=== PATIENT | female | born 1975 | race Caucasian/White ===

== ENCOUNTER 2017-09-24 15:09 | Emergency (ER) | payer OTHER, SELFPAY ==
[2017-09-24 15:09] VITALS: BP 181/110; PULSE 100; RESP 18; TEMP 36.7; O2SAT 100; BMI 31.8
--- NOTE | 2017-09-24 15:28 | CT_ITS ---
STUDY: CT ABDOMEN AND PELVIS WITHOUT CONTRAST REASON FOR EXAM: Female, 42 years old. Right-sided pain RADIATION DOSAGE (If Supplied By Facility): CTDIvol = ( 7.64 ) mGy, DLP = ( 393.00 ) mGycm TECHNIQUE: Transaxial images were obtained from the dome of the diaphragm to the symphysis pubis without oral contrast, and without intravenous contrast. Sagittal and coronal images were reconstructed. Individualized dose optimization techniques were used for this CT. COMPARISON: None. FINDINGS: The visualized lung bases are clear. The visualized portions of the heart and pericardium are within normal limits. The patient is status post cholecystectomy. The liver demonstrates an unremarkable unenhanced appearance. The spleen is normal in size. The pancreas demonstrates an unremarkable unenhanced appearance. The adrenal glands are within normal limits. There is a 3 mm nonobstructing left renal stone. There are no additional urinary calculi. There is no hydronephrosis. Normal visualized stomach. There is no bowel obstruction or inflammation. The appendix is not visualized, but there are no findings to suggest acute appendicitis. The aorta is normal in caliber. There is no abdominal or pelvic free air, free fluid, fluid collection or lymphadenopathy. There is a 3 cm left adnexal cyst. There are no destructive osseous lesions. CT/Abdomen/Pelvis without Cont IMPRESSION: 3 mm nonobstructing left renal stone. No additional urinary calculi. No hydronephrosis. No bowel obstruction or inflammation. 3 cm left adnexal cyst. If indicated, further evaluation with ultrasound can be performed. Electronically Signed: Coy Langford, at 19:10 EST Tel , Service support ,
--- NOTE | 2017-09-24 16:03 | ED.DCSUM_ITS ---
- ER Visit Summary Date of Service: 09/24/17 Chief Complaint: Right flank pain History of Present Illness: The patient is a [address] Esquivel. She reports that she has right flank and right-sided abdominal pain began 2 weeks ago. Is gradually gotten worse. It is a constant pressure with sharp episodes. Is 8 out of 10 currently and at worst. Is worsened by movement or food periods relieved by remaining still. She has had nausea without vomiting. No diarrhea. Her last bowel movement was today. She has had no melena or hematochezia. No dysuria, frequency, or hematuria. Last menstrual period was last week. She denies any vaginal bleeding or discharge. She reports this is similar when she has had kidney stones in the past. Physical Examination: Vitals: Stable. Afebrile. General: Well-nourished and well-developed. Head: Normocephalic atraumatic. Neck: Supple, no lymphadenopathy. No JVD. Nontender. Cardiovascular: Regular rate and rhythm. No murmurs. Respiratory: No respiratory distress. Clear to auscultation bilaterally. Abdominal: Soft, moderate tenderness palpation over the epigastric, right upper quadrant, and right lower quadrants, nondistended, normal bowel sounds. No guarding, rebound, or peritoneal signs. Back: Moderate right CVA tenderness. Extremities: Nontender, no edema. Skin: Normal color, no rash. Neurologic: Alert and oriented ?3. Cranial nerves II through XII are intact. Normal strength and sensation. Psych: Normal affect. Test Results: CBC is normal. Chem-7 is normal. LFTs are normal. Lipase is normal. UA is negative. test is negative. CT flank shows a 3 cm left adnexal cyst and no disease on the right to explain her flank pain. Pelvic ultrasound shows a 3 cm left ovarian cyst with normal flow. She also has a 2.6 x 1.7 x 1.4 cm fibroid. Emergency Department Course and Treatment: Patient had an IV placed. She was given Toradol and Zofran IV. Treatment Plan: An [facility] report was obtained which show she has had no opiates in the past year. She will be discharged with naproxen and [place]. 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 Return to the emergency department for any worsening symptoms. Disposition: To home in improved and stable condition. Impression: 1. Left ovarian cyst. 2. Uterine fibroids. This note was generated with [employer] dictation software. It may contain incorrect words, spelling, and punctuation that were not noted in review of the chart prior to signing ED Disposition - Plan for ED Patient: Disposition: Home or Assisted Living Chief Complaint: Flank Pain Instructions: ED Flank Pain Uncertain Cause, ED Cyst Ovarian Prescriptions: Hydrocodone Bitart/Apap 5-325 [[place] 5/325] 1 - 2 tablet PO Q4H PRN PRN 3 Days # 12 tablet PRN Reason: Pain Naproxen [Naprosyn] 500 mg PO BID PRN #20 tablet Referrals: Dona Santos MD [STAFF PHYSICIAN] - 1 Week if not improving
[2017-09-24] MEDS: Ketorolac 30 MG/ML Syringe IV (16:06)
[2017-09-24] MEDS: 0.9% Normal Saline 1,000 ML 1000 ML IV (16:06)
[2017-09-24] MEDS: Ondansetron 4 MG/2 ML Vial IV (16:06)
[2017-09-24 16:10] LABS: Bacteria 0 SEEN /hpf (None Seen); Mucous, Urine 0 SEEN /hpf (<or=2+); Red Blood Cells-Urine 0 SEEN /hpf (0-5)
[2017-09-24 16:17] LABS: Absolute Lymphocyte Count 2.17 X10^3/ul (0.83-4.51); Absolute Neutrophil Count 3.7 X10^3/uL (2.0-7.7); Basophil# 0.04 X10^3/uL; Basophil% 0.6 % (0-1); Eosinophil# 0.19 X10^3/uL; Eosinophils% 2.8 % (0-5); Hematocrit 38.7 % (37-47); Lymphocyte # 2.17 X10^3/ul (4.0); Lymphocyte % 32.2 % (19-41); Mean Corp Hgb Conc 33.6 g/gl (32-36); Mean Corpuscular Hgb 29.7 pg (27.0-32.0); Mean Corpuscular Volume 88.4 fL (81-99); Mean Platelet Vol. 9.1 fl (6.2-12.0); Monocyte# 0.61 X10^3/uL; Monocyte% 9.1 % (0-10); Neutrophil # 3.71 X10^3/uL (2.7-7.7); Neutrophil % 55.2 % (47-70); Platelet Count 294 K/mm3 (150-450); RBC Distribution Width CV 14.1 % (11.6-14.6); RBC Distribution Width SD 45.7 fl (35.1-43.9); Red Blood Count 4.38 M/mm3 (4.2-5.4); White Blood Count 6.7 K/mm3 (4.4-11.0)
[2017-09-24 16:22] LABS: POSITIVE COUNT NO; POSITIVE DIFFERENTIAL NO; POSITIVE MORPHOLOGY NO
[2017-09-24 16:37] LABS: Color, Urine Yellow (Yellow); Glucose, Dipstick Normal (Normal); Ketone-Dipstick Negative (Negative); Leukocyte Esterase-Dipstick 500 /ul (Negative); Nitrite-Dipstick Negative (Negative); Occult Blood-Urine Negative /ul (Negative); Protein-Dipstick Negative (Negative); Specific Gravity, Urine 1.015 (1.002-1.030); Urine Bilirubin Dipstick Negative (Negative); Urine Clarity Cloudy (Clear); Urine Urobilinogen Normal (Normal)
[2017-09-24 16:39] LABS: AST(SGOT) 26 U/L (15-37); Alanine Aminotransfer ALT/SGPT 43 U/L (13-56); Albumin, Serum 3.5 g/dL (3.2-5.0); Alkaline Phosphatase 78 U/L (45-117); Anion Gap 9 (5-15); BUN 12 mg/dL (7-18); BUN/Creat Ratio 18.5 RATIO (10-20); Bilirubin, Direct < 0.05 mg/dL (0.00-0.30); Calcium,Total 8.6 mg/dL (8.5-10.1); Chloride 101 mmol/L (98-107); Creatinine, Serum 0.65 mg/dL (0.55-1.02); EST Glomerular Filtration Rate 107 mL/min (>60); Est Glom Filt Rate - Afr Amer 129 mL/min (>60); Estimated Creatinine Clearance 80.99 ml/min; Globulin 4.1 g/dL (2.2-4.2); Glucose 91 mg/dL (74-106); Lipase 144 U/L (73-393); Potassium 3.5 mmol/L (3.5-5.1); Pregnancy, Serum, hCG Quali. NEGATIVE Negative (0-9 Nonpreg); Protein, Total 7.6 g/dL (6.4-8.2); Sodium Level 136 mmol/L (136-145)
[2017-09-24 16:58] LABS: Squamous Epithelial Cells - UA 0-5 SEEN /hpf (5-10)
[2017-09-24 16:59] LABS: Amorphous Sediment 3+; White Blood Cells 0-5 SEEN /hpf (0-5)
[2017-09-24 18:33] VITALS: BP 142/86; PULSE 97; RESP 22; O2SAT 97
--- NOTE | 2017-09-24 19:07 | US_ITS ---
STUDY: ULTRASOUND TRANSVAGINAL CLINICAL: Female, 42 years old. Pelvic pain TECHNIQUE: Transvaginal COMPARISON: CT dated 09/24/2017 FINDINGS: Study limited by bowel gas. Normal uterine size measuring 7.7 x 5.1 x 3.5 cm. cm in maximal craniocaudal dimension. There is a 2.6 x 1.7 x 1.4 cm fibroid in the body of the uterus Normal endometrial thickness measuring 3 mm. There are no endometrial masses, and there is no fluid in the endometrial cavity. Normal uterine cervix. The patient is status post right oophorectomy. The left ovary is not well visualized due to bowel gas. The left ovary measures approximately 5.7 x 4.1 x 3.3 cm. Although not well-visualized, there does appear to be normal Doppler flow demonstrated to the left ovary. There is a 2.9 x 2.8 x 2.6 cm cyst in the left ovary. There is no free fluid in the pelvis. US/Transvaginal Non- IMPRESSION: Study limited by bowel gas. Specifically, the left ovary is not well-visualized. Enlarged left ovary with a 2.9 x 2.8 cm cyst. Although evaluation is limited, there does appear to be normal Doppler flow in the left ovary. 2.6 x 1.7 x 1.4 cm fibroid in the uterus. Status post right oophorectomy. Electronically Signed: Coy Langford, at 22:43 EST Tel , Service support ,
[2017-09-24] MEDS: HYDROcodone Bitartrate/Apap 5/325 Tablet PO (23:03)
[2017-09-24 23:07] VITALS: BP 152/93; PULSE 86; RESP 17; O2SAT 98
--- NOTE | 2017-09-24 23:07 | ED.RN ---
IV DC'ED, CATHETER INTACT, SMALL GAUZE DRESSING PLACED. DISCHARGE INSTRUCTIONS GIVEN TO AND REVIEWED WITH PATIENT, PATIENT DENIES QUESTIONS OR CONCERNS AND VOICES UNDERSTANDING OF DISCHARGE INSTRUCTIONS. PT AMBULATES OUT OF ROOM WITHOUT DIFFICULTY.
== END 2017-09-24 23:08 | disposition home or self-care (01) ==
LOC: ED 15:31
PROVIDERS: Emergency Provider Emergency Medicine; Family Provider Preventive Medicine Occupational Medicine; PCP Preventive Medicine Occupational Medicine
DX: N83.202 Unspecified ovarian cyst, left side (principal); D25.9 Leiomyoma of uterus, unspecified; Z87.442 Personal history of urinary calculi; F41.9 Anxiety disorder, unspecified; F32.9 Major depressive disorder, single episode, unspecified; M79.7 Fibromyalgia; Z87.42 Personal history of other diseases of the female genital tract; Z90.49 Acquired absence of other specified parts of digestive tract; Z90.721 Acquired absence of ovaries, unilateral
CPT/HCPCS: 74176; 76830; 80048; 80076; 81001; 83690; 84703; 85025; 93976; 96361; 96374; 96375; 99285; J7030; A4216; J2405

== ENCOUNTER 2017-12-01 10:34 | Inpatient (IN) | payer OTHER, SELFPAY ==
--- NOTE | 2017-11-26 15:41 | EKG12_ITS ---
Test Reason : PRE OP Blood Pressure : / mmHG Vent. Rate : 097 BPM Atrial Rate : 097 BPM P-R Int : 154 ms QRS Dur : 086 ms QT Int : 342 ms P-R-T Axes : 053 033 046 degrees QTc Int : 434 ms Normal sinus rhythm Normal ECG Confirmed by LUIS SAL, GURPREET ([id number]), online content editor CHASITY BENNETT ([id number]) on 11/30/2017 2:05:36 PM Referred By: Dona Santos Confirmed By:GURPREET SMITH MD
[2017-11-26 17:02] LABS: Hemoglobin 13.2 g/dl (12.0-15.0); Mean Corp Hgb Conc 33.8 g/gl (32-36); Mean Corpuscular Hgb 29.9 pg (27.0-32.0); Mean Corpuscular Volume 88.4 fL (81-99); Mean Platelet Vol. 9.4 fl (6.2-12.0); Platelet Count 372 K/mm3 (150-450); RBC Distribution Width CV 13.5 % (11.6-14.6); RBC Distribution Width SD 43.3 fl (35.1-43.9); Red Blood Count 4.41 M/mm3 (4.2-5.4); White Blood Count 10.7 K/mm3 (4.4-11.0)
[2017-11-26 17:10] LABS: Pregnancy, Serum, hCG Quali. NEGATIVE Negative (0-9 Nonpreg)
[2017-11-26 17:14] LABS: Scan Indicated on CBC? Y/N NO
[2017-12-01] VITALS (11 sets, daily range): BP systolic 143–176; BP diastolic 87–126; PULSE 88–110; RESP 14–22; TEMP 35.9–36.9; O2SAT 96–100; BMI 32.3
--- NOTE | 2017-12-01 | HYST_PTH ---
PATIENT: KATLIN GAYTAN LOC: MS2 U#:[id number] AGE/SX: 42/F [place] [facility] [place] [facility] [place]12/01/[address]: Dr. Dona Santos MD : [id number] BED: 1 DIS: 12/03/2017 SPEC #: [id number] RECD: 12/01/17 17:31 STATUS: ERICKA FARNAZ #: [id number] GUILLERMINA: 12/01/17 00:[address]: Dona Santos DEPT: SURGICAL PATHOLOGY RECD BY: Anurag Rm ENTERED: 12/02/17 11:50 SP TYPE: HYSTERECT OTHR DR: Dr. Skyler Hatch, DO Tissues: Uterus, NOS Procedures: Surgery Specimen Level V HEADER OPERATION: Hysterectomy, supracervical abdomen, salpingo-oophorectomy PRE-OP DIAGNOSIS: Lower abdominal pain, endometriosis of pelvic peritoneum TISSUE SUBMITTED: Uterus, left ovary and fallopian tube MICROSCOPIC DIAGNOSIS Uterus, hysterectomy: Endometrium ? proliferative endometrium. Myometrium ? adenomyosis. Left fallopian tube and ovary ? tubo-ovarian adhesions, corpus luteal cysts and foci of endometriosis. AM:leisa 12/03/17 COMMENT Case has been reviewed in consultation with Dr. Franco who concurs with the above diagnosis. IDC:SJ MICROSCOPIC DESCRIPTION Slides are reviewed. GROSS DESCRIPTION Received in fixative is one container labeled with the patient's name and designated uterus, left ovary and fallopian tube. The specimen consists of a supracervical hysterectomy specimen consisting of uterus without cervix and detached fallopian tube and ovary. The uterus without cervix weighs 50 gm and measures 5 x 5 x 4 cm. The anterior serosal surface is slightly ragged. The endometrial cavity measures 3.5 cm in length and 2 cm in width. The endometrium is congested without any mass lesion and measures 0.1 cm in thickness. Sections of the uterine wall do not reveal any mass lesion and it measures up to 2 cm in thickness. The fallopian tube measures 4.5 cm in length and 1 cm in diameter. The fimbrial end appears to be adherent to the ovary. The adjacent ovary appears to be disrupted and measures 4 x 1.5 x 1 cm. Ict Development Manager sections are submitted in eight cassettes as follows: 1 & 2 - anterior uterine wall, 3 & 4 - posterior uterine wall, 5-8 ? ovary and fallopian tube. / LEIGHTON:leisa 12/02/17 TC:5 CPT: 77710
[2017-12-01 10:57] LABS: Internal QC Validated? YES +Cl - CLEAR BKGD; Pregnancy, Urine Negative Negative
--- NOTE | 2017-12-01 16:06 | PCM.DC.AHY ---
Discharge Diet: No Restrictions Discharge Activity: May not drive while taking narcotic pain medications., May Shower, May Take a Tub Bath Return to work on:: 01/17/18 May resume sexual activity in: 4-6 weeks Lifting Restrictions: limit to less than 20 lbs for 4-6 wk to allow healing Call your doctor if you observe: Fever of 101 or Higher, Inability to have a bowel movement, Using more than one pad per hour, Calf discomfort, Uncontrolled pain Change Dressing in (Days):: 14 Remove Dressing in (days):: 14 Cleanse incision/area with: Soap & Water, Keep Dressing Clean & Dry Additional Instructions: 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 Avoid heavy lifting and nothing in vagina for 4-6 wk to allow healing. Allergies/Adverse Reactions: Allergies clindamycin Allergy (Verified 11/26/17 08:50) Rash hazelnut Allergy (Verified 11/26/17 08:50) Hives levofloxacin [From Levaquin] Allergy (Verified 11/26/17 08:50) Rash shellfish derived Allergy (Verified 11/26/17 08:50) Anaphylaxis Medications to take at Discharge Vitamin B Complex 1 each PO DAILY 06/28/15 Duloxetine Hcl [Cymbalta] 90 mg PO DAILY 11/26/17 Lorazepam [Ativan] 0.5 mg PO TID PRN PRN 11/26/17 Multivitamin [Multiple Vitamins] 1 each PO DAILY 11/26/17 Naproxen [Naprosyn] 500 mg PO BID PRN PRN 11/26/17 Docusate Sodium [Colace] 100 mg PO BID #60 cap 12/01/17 Oxycodone [Oxyir] 5 - 10 mg PO Q6H PRN PRN 7 Days #28 tablet 12/01/17 Polyethylene Glycol 3350 [Miralax] 17 gm PO DAILY #30 packet 12/01/17 The following prescriptions were given: Oxycodone [Oxyir] 5 - 10 mg PO Q6H PRN PRN 7 Days #28 tablet PRN Reason: Mod-Severe Pain (-05/25) Polyethylene Glycol 3350 [Miralax] 17 gm PO DAILY #30 packet Docusate Sodium [Colace] 100 mg PO BID #60 cap Primary Care Physician: Skyler Hatch DO [Primary Care Provider] - Please Follow Up With: Dona Santos MD - [phone] When: in 2 weeks, please call to make an appointment.
--- NOTE | 2017-12-01 16:12 | DCINST_ITS ---
Discharge Diet: No Restrictions Discharge Activity: May not drive while taking narcotic pain medications., May Shower, May Take a Tub Bath Return to work on:: 01/17/18 May resume sexual activity in: 4-6 weeks Lifting Restrictions: limit to less than 20 lbs for 4-6 wk to allow healing Call your doctor if you observe: Fever of 101 or Higher, Inability to have a bowel movement, Using more than one pad per hour, Calf discomfort, Uncontrolled pain Change Dressing in (Days):: 14 Remove Dressing in (days):: 14 Cleanse incision/area with: Soap & Water, Keep Dressing Clean & Dry Additional Instructions: 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 Avoid heavy lifting and nothing in vagina for 4-6 wk to allow healing. Allergies/Adverse Reactions: Allergies clindamycin Allergy (Verified 11/26/17 08:50) Rash hazelnut Allergy (Verified 11/26/17 08:50) Hives levofloxacin [From Levaquin] Allergy (Verified 11/26/17 08:50) Rash shellfish derived Allergy (Verified 11/26/17 08:50) Anaphylaxis Medications to take at Discharge Vitamin B Complex 1 each PO DAILY 06/28/15 Duloxetine Hcl [Cymbalta] 90 mg PO DAILY 11/26/17 Lorazepam [Ativan] 0.5 mg PO TID PRN PRN 11/26/17 Multivitamin [Multiple Vitamins] 1 each PO DAILY 11/26/17 Naproxen [Naprosyn] 500 mg PO BID PRN PRN 11/26/17 Docusate Sodium [Colace] 100 mg PO BID #60 cap 12/01/17 Oxycodone [Oxyir] 5 - 10 mg PO Q6H PRN PRN 7 Days #28 tablet 12/01/17 Polyethylene Glycol 3350 [Miralax] 17 gm PO DAILY #30 packet 12/01/17 The following prescriptions were given: Oxycodone [Oxyir] 5 - 10 mg PO Q6H PRN PRN 7 Days #28 tablet PRN Reason: Mod-Severe Pain (-05/25) Polyethylene Glycol 3350 [Miralax] 17 gm PO DAILY #30 packet Docusate Sodium [Colace] 100 mg PO BID #60 cap Primary Care Physician: Skyler Hatch DO [Primary Care Provider] - Please Follow Up With: Dona Santos MD - [phone] When: in 2 weeks, please call to make an appointment.
[2017-12-01] MEDS: HYDROmorphone 1 MG/ML Syringe IV (17:21)
[2017-12-01] MEDS: LORazepam 0.5 MG Tablet PO (17:21)
[2017-12-01] MEDS: Dextrose 5%-Lactated Ringers 1,000 ML 125 ML IV (17:24)
--- NOTE | 2017-12-01 18:11 | PN_ITS ---
Subjective: Postop check Drowsy C/O pain. Conversant, but drifts off between sentences Incision CDI. Urine output: copious , clear yellow A/P: postop supracervical abdominal hysterectomy ,lysis of adhesions and LSO severe endometriosis Toradol and prn Dilaudid. If ineffective, then to dilaudid COUNTER WAITRESS/WAITER HTN Likely due to pain Toradol to be given. K pad in place prn hydralazine IV ordered Continue care - Physical Exam Vital Signs Temp Pulse Resp BP Pulse Ox 97.8 F 96 18 176/108 H 99 12/01/17 17:05 12/01/17 17:05 12/01/17 17:05 12/01/17 17:05 12/01/17 17:05 Oxygen Flow Rate (L/min) 2 Oxygen Delivery Method Nasal Cannula Weight: 75 kg Body Mass Index (BMI) 32.3 Intake and Output for Last 24 Hours 11/29/17 11/30/17 12/01/17 23:59 23:59 23:59 Intake Total 2100 / 2100 Output Total 575 / 575 Balance 1525 / 1525 Laboratory Tests Past 24 Hrs 12/01/17 10:47 Urine Test Negative Medical Necessity - Tobacco Use Smoking Status: Current some day smoker
[2017-12-01] MEDS: Ketorolac 30 MG/ML Syringe IV (18:27)
[2017-12-01] MEDS: DiphenhydrAMINE 50 MG/ML Syringe 25 MG IV (18:28)
[2017-12-01] MEDS: 0.9% NaCl Peripheral Flush Adult/Peds IV ×2 (18:28→19:37)
[2017-12-01] MEDS: hydrALAZINE 20 MG/ML Vial 5 MG IV (19:37)
[2017-12-01] MEDS: Acetaminophen 500 MG Tablet 1000 MG PO (21:11)
[2017-12-01] MEDS: Docusate Sodium 100 MG Capsule PO (21:12)
[2017-12-02] VITALS (10 sets, daily range): BP systolic 102–172; BP diastolic 67–105; PULSE 85–104; RESP 16–18; TEMP 36.3–37; O2SAT 94–98
[2017-12-02] MEDS: 0.9% NaCl Peripheral Flush Adult/Peds IV ×5 (00:01→23:45)
[2017-12-02] MEDS: LORazepam 0.5 MG Tablet PO (00:13)
[2017-12-02] MEDS: Dextrose 5%-Lactated Ringers 1,000 ML 125 ML IV (00:56)
[2017-12-02] MEDS: oxyCODONE 5 MG Tablet PO (03:58)
[2017-12-02] MEDS: Ketorolac 30 MG/ML Syringe IV ×5 (05:53→23:45)
[2017-12-02] MEDS: Acetaminophen 500 MG Tablet 1000 MG PO ×3 (05:53→21:22)
[2017-12-02 05:59] LABS: Hematocrit 34.7 % (37-47); Hemoglobin 11.7 g/dl (12.0-15.0); Mean Corp Hgb Conc 33.7 g/gl (32-36); Mean Corpuscular Hgb 29.6 pg (27.0-32.0); Mean Corpuscular Volume 87.8 fL (81-99); Platelet Count 341 K/mm3 (150-450); RBC Distribution Width CV 13.5 % (11.6-14.6); RBC Distribution Width SD 43.5 fl (35.1-43.9); Red Blood Count 3.95 M/mm3 (4.2-5.4); White Blood Count 16.5 K/mm3 (4.4-11.0)
[2017-12-02 06:13] LABS: Scan Indicated on CBC? Y/N NO
[2017-12-02 06:29] LABS: Anion Gap 9 (5-15); BUN 9 mg/dL (7-18); BUN/Creat Ratio 12.2 RATIO (10-20); Calcium,Total 7.7 mg/dL (8.5-10.1); Chloride 104 mmol/L (98-107); Creatinine, Serum 0.74 mg/dL (0.55-1.02); EST Glomerular Filtration Rate 92 mL/min (>60); Est Glom Filt Rate - Afr Amer 111 mL/min (>60); Estimated Creatinine Clearance 71.14 ml/min; Glucose 160 mg/dL (74-106); Potassium 3.6 mmol/L (3.5-5.1); Sodium Level 138 mmol/L (136-145)
--- NOTE | 2017-12-02 06:43 | OP.PCM_ITS ---
Operative Report Date of Procedure: 12/01/17 PROCEDURE: Supracervical abdominal hysterectomy Left salpingoophorectomy Adhesiolysis Preoperative diagnosis: Chronic pelvic and lower abdominal pain Endometriosis Dense pelvic adhesions Postop diagnosis: Chronic pelvic and lower abdominal pain Endometriosis Dense pelvic adhesions Anesthesia: General anesthesia, Suellen Alvarez CRNA Surgeon: Dona Santos MD Meat Smoker: ASTER Saleh EBL 200 cc Complications: none Drains: Hanna draining clear yellow appearing urine Fluids: replacement LR Findings: There was a normal appearing uterus with dense adhesions of the posterior surface of the uterus to the posterior pelvis. The anterior uterus was adherent to the bladder. The right fallopian and tube and ovary are surgically absent. The left fallopian tube and ovary was densely adherent to the posterior leaf of the broad ligament, uterus. A large fluid filled cyst vs hydrosalpinx was noted. There were dense adhesions at the uterosacral ligaments noted bilaterally (noted after the uterus was dissected free from dense adhesions at the posterior surface of the uterus). PATH: Uterine fundus, without cervix Right fallopian tube and ovary Narrative account: After the risks, benefits and alternatives of the procedure were reviewed with the patient, informed consent was obtained. The patient was taken to the Operating room with an IV running, and placed in dorsal supine position on the operating table. She was given general anesthesia and once asleep, briefly frog-legged for Hanna catheter placement and vaginal vault prep. She was then repositioned to dorsal supine position with a pillow under the knees and prepped and draped in the usual sterile fashion. A Pfannenstiel skin incision was created using the knife (just superior to the prior skin incision scars). The incision was carried down to the rectus fascia using the knife. The fascia was nicked in the midline. The fascial incision was extended bilaterally using curved Cruz scissors. The superior aspect of the fascial incision was grasped with Jayson clamps and tented up and the underlying rectus abdominal muscles were dissected free. In a similar manner, the inferior aspect of the facial incision was grasped with Jayson clamps tented up and the underlying rectus abdominal muscles were dissected free. The rectus abdominis muscles were in the midline and the peritoneum was identified and entered by blunt dissection high in the incision. The peritoneal incision was extended superiorly and inferiorly with Metzenbaum scissors. The peritoneum and rectus abdominis muscles were stretched laterally. The Granville retractor with short side blade, bladder retractor and superior arm retractor were then inserted. The bowel was tucked back out of the field with moistened laparotomy sponges. The exposed portion of the uterine fundus was grasped with a single toothed tenaculum to allow manipulation of the uterus while adhesiolysis was initiated. Using the operators fingertips and sharp dissection the posterior surface of the uterus was dissected free of dense adhesions. The round ligaments were grasped, suture ligated and then divided by Bovie cautery. The adhesions between the anterior surface of the uterus and the bladder were then taken down by blunt and sharp dissection and the bladder was dissected down to the midportion of the cervix. The L ovary and fallopian tube were grasped with a Shaila clamp and a cystic structure was ruptured. The operators fingertips, blunt and sharp dissection were used to free the fallopian tube and ovary. A curved Krystal clamp was then used to grasp the left infundibulopelvic ligament. This was divided, suture ligated and free tied with 1 Vicryl. Excellent hemostasis was noted of the pedicle. Sequential pedicles were then taken along the broad ligament at each side of the uterus, alternating between the right and the left sides to maintain hemostasis. Each pedicle along the broad ligament was sequentially grasped by straight Krystal clamps, divided and suture ligated. Adequate hemostasis was noted as each pedicle was secured. The uterine arteries were clamped bilaterally and divided and suture ligated. At this point, due to a dense floor of adhesions at the uterosacral ligaments bilaterally and to avoid undue bleeding, the decision was made to perform a SUPRACERVICAL hysterectomy. The uterine fundus was excised with a knife (with a malleable retractor placed posterior to the uterus to protect the bowel). The cervical stump was secured with a single toothed tenaculum. There was very minimal bleeding. The endocervix was Bovie cauterized to assure than no residual menses / bleeding would occur). The cervix was oversewn with figure of 8 and interrupted stitches of 1 Vicryl. Excellent hemostasis was noted at the cervix, left infundibulopelvic ligament and round ligaments. The moistened laparotomy sponges were removed, and there was some oozing noted at the posterior pelvis and along the left pelvic sidewall where dense adhesions was been taken down. As needed, superficial figure of 8 and interrupted stitches of 1 Vicryl were placed, pressure was held. Excellent hemostasis was noted then. Aung was sprayed along the posterior cul de sac after visual inspection. All laparotomy sponges were removed, and the Granville retractor was removed. The bowel and omentum were returned to their anatomic positions in the lower abdomen. The rectus abdominis muscles and peritoneum were reapproximated in the midline with vertical mattress stitches of 1 Vicryl. Aung was dusted over the anterior rectus bodies. The fascia was then closed with a running nonlocked stitch of 1 Vicryl. Bovie cautery and Aung were used for hemostasis at the subcutaneous fatty tissue layer. 3-0 Vicryl was then used to reapproximate this layer and close space. The skin was then reapproximated with a subcuticular stitch of 4-0 Monocryl in a running fashion. The skin incision was then cleansed and a sterile dressing of Cavilon, steristrips, and a Mepilex were applied. Sponge, instrument and needle counts were correct times two. The patient was then awakened from general anesthesia and transferred to the recovery room in stable condition after tolerating the procedure well. Excellent urine output was noted. Medications given preop and intraop included: Cefotetan 2 gm IV information security consultant to the OR. For a complete listing of medications given preop and intraop, please see the anesthesia record.
--- NOTE | 2017-12-02 08:39 | PCM.PROGNOTE ---
Subjective: POD#1 Supracervical abdominal hysterectomy, LSO. Lysis of adhesions. Sore. Asking if ok to have some Coke and regular food. Tolerated slushy and po liquids w/o N/V. Some cramping with end of void. Relates urine blood tinged and with small clots, but able to urinate ok after Hanna catheter removed. Objective: More alert, awake today. - Physical Exam General: Alert, Oriented x3, Cooperative - towards end of discussion, more drowsy HEENT: Atraumatic, EOMI Neck: Supple Abdomen: Soft - tender consistent with postop status Skin: Incision - Mepilex dressing CDI. No shadow drainage noted. Psych/Mental Status: Normal Affect Vital Signs Temp Pulse Resp BP Pulse Ox 97.3 F L 90 16 168/96 H 95 //18 04:05 12/02/18 04:05 12/02/17 04:05 12/02/17 06:07 12/02/17 08:31 Oxygen Flow Rate (L/min) 1.5 Oxygen Delivery Method Room Air Weight: 75 kg Body Mass Index (BMI) 32.3 Intake and Output for Last 24 Hours 04/17/18 18/18 18 23:59 23:59 23:59 Intake Total 2201 / 2201 1696 / 1696 Output Total 1075 / 1075 575 / 575 Balance 1126 / 1126 1121 / 1121 Laboratory Tests Past 24 Hrs 04/18/18 18 12/02/17 10:47 05:30 05:30 WBC 16.5 H RBC 3.95 L Hgb 11.7 L Hct 34.7 L MCV 87.8 MCH 29.6 MCHC 33.7 RDW 13.5 RDW Differential 43.5 Plt Count 341 MPV 9.0 Sodium 138 Potassium 3.6 Chloride 104 Carbon Dioxide 25.0 Anion Gap 9 BUN 9 Creatinine 0.74 Estim Creat Clear Calc 71.14 Est GFR (MDRD) Af Amer 111 Est GFR (MDRD) Non-Af 92 BUN/Creatinine Ratio 12.2 Glucose 160 H Calcium 7.7 L Urine Test Negative Medical Necessity - Tobacco Use Smoking Status: Current some day smoker Assessment/Plan POD#1 Supracervical hysterectomy for severe endometriosis, pelvic adhesions. LSO. Adhesiolysis #1 ) Postop status. Stable postop. CBC wnl as anticipated postop. BMP wnl. Increase diet and activity as tolerated. Begin po meds. Hanna out and voiding well with some end of urination cramping noted. #2 ) HTN and slight inc HR likely due to discomfort and postop status. Will begin low dose betablocker for these and plan to d/c as recovery from surgery progresses. Continue care.
[2017-12-02] MEDS: Polyethylene Glycol 3350 17 GM PACKET PO (09:13)
[2017-12-02] MEDS: DULoxetine Hcl 30 MG Capsule 90 MG PO (09:14)
[2017-12-02] MEDS: hydrALAZINE 20 MG/ML Vial 5 MG IV (09:15)
[2017-12-02] MEDS: Docusate Sodium 100 MG Capsule PO ×2 (09:15→21:22)
[2017-12-02] MEDS: Labetalol 100 MG Tablet PO ×2 (11:52→21:22)
[2017-12-03] MEDS: 0.9% NaCl Peripheral Flush Adult/Peds IV (05:41)
[2017-12-03] MEDS: Ketorolac 30 MG/ML Syringe IV (05:41)
[2017-12-03] MEDS: Acetaminophen 500 MG Tablet 1000 MG PO (05:41)
[2017-12-03 05:44] VITALS: BP 95/63; PULSE 86; RESP 16; TEMP 36.5; O2SAT 95
--- NOTE | 2017-12-03 08:26 | PCM.PROGNOTE ---
Subjective: POD#2 Supracervical abdominal hysterectomy and LSO, lysis of adhesions. Severe pelvic adhesive disease 2/2 endometriosis. Doing much better today. Up and down to bathroom and tolerating this OK. Some pain, soreness but controlled by pain meds. IV to S/L in R arm and continued Toradol given. - Physical Exam General: Alert, Oriented x3, Cooperative, No apparent distress HEENT: Atraumatic Neck: Supple Abdomen: Soft - minimally tender consistent with postop status. Skin: Incision - CDI. Steristrips intact, with minimal old dischg noted. Mepilex removed. Some mild tape rxn noted at L side of incision. Neurological: Cranial nerves II-XII grossly intact Psych/Mental Status: Normal Affect Vital Signs Temp Pulse Resp BP Pulse Ox 97.7 F L 86 16 95/63 95 12/03/17 05:44 12/03/17 05:44 12/03/17 05:44 12/03/17 05:44 12/03/17 05:44 Oxygen Flow Rate (L/min) 1.5 Oxygen Delivery Method Room Air Weight: 75 kg Body Mass Index (BMI) 32.3 Intake and Output for Last 24 Hours 04/18/18 /19/18 12/03/18 23:59 23:59 23:59 Intake Total 2201 / 2201 4119 / 4119 300 / 300 Output Total 1075 / 1075 3225 / 3225 200 / 200 Balance 1126 / 1126 894 / 894 100 / 100 Medical Necessity - Tobacco Use Smoking Status: Current some day smoker Assessment/Plan POD#2 Supracervical hysterectomy for severe endometriosis, pelvic adhesions. LSO. Adhesiolysis #1 ) Postop status. Stable postop. #2 ) HTN and slight inc HR likely due to discomfort and postop status. Resolving. Held Betablocker this am and will discontinue #3 ) Surgical postmenopause. Prefers NOT to start on hormone for now. Discussed option for Aygestin (progesterone only) to help with hot flushes and to further suppress any residual endometriosis. Will call in PRN for this RX if needed Continue care. Dischg home today. RTO in 2 wk for postop incision check., prn sooner.
--- NOTE | 2017-12-03 08:32 | PCM.DC.SUM ---
Discharge Date and Diagnosis Date of Admission: 12/01/17 - Chronic pelvic pain, Severe endometriosis, pelvic adhesive disease Date of Discharge: 12/03/17 - s/p supracervical abdominal hyst, LSO.lysis adhesions Hospital Course and Treatment Operations: hysterectomy - Supracervical abdominal hysterectomy, LSO. adhesiolysis. Summary of Care Provided: The patient is a 42 year old female with prior C/S and prior RSO. H/o severe endometriosis and pelvic adhesive disease 2/2 endometriosis. Chronic pelvic pain. Presents for hysterectomy and LSO. Elected [facility] and declined robotic hysterectomy. Admitted on 12/01/17 for surgery. Supracervical hysterectomy, LSO and adhesiolysis performed. Cervix left in place due to dense adhesions along the uterosacral ligaments and posterior pelvis. Postoperative course uneventful: CBC stable. Mild to mod HTN d/t to pain, fluid balance Discharged home on POD #2 to f/u in ofc in 2 wk as planned, prn sooner. Discharge Diet: No Restrictions Discharge Activity: May not drive while taking narcotic pain medications., May Shower, May Take a Tub Bath Return to work on:: 01/17/18 May resume sexual activity in: 4-6 weeks Call your doctor if you observe: Fever of 101 or Higher, Inability to have a bowel movement, Using more than one pad per hour, Calf discomfort, Uncontrolled pain Change Dressing in (Days):: 14 Remove Dressing in (days):: 14 Cleanse incision/area with: Soap & Water, Keep Dressing Clean & Dry Home Medications: Medications to take at Discharge Vitamin B Complex 1 each PO DAILY 06/28/15 Duloxetine Hcl [Cymbalta] 90 mg PO DAILY 11/26/17 Lorazepam [Ativan] 0.5 mg PO TID PRN PRN 11/26/17 Multivitamin [Multiple Vitamins] 1 each PO DAILY 11/26/17 Naproxen [Naprosyn] 500 mg PO BID PRN PRN 11/26/17 Docusate Sodium [Colace] 100 mg PO BID #60 cap 12/01/17 Oxycodone [Oxyir] 5 - 10 mg PO Q6H PRN PRN 7 Days #28 tablet 12/01/17 Polyethylene Glycol 3350 [Miralax] 17 gm PO DAILY #30 packet 12/01/17 Naproxen [Naprosyn] 250 - 500 mg PO TID PRN #30 tab 12/03/17 Following Prescrptions Were Given to Patient: Oxycodone [Oxyir] 5 - 10 mg PO Q6H PRN PRN 7 Days #28 tablet PRN Reason: Mod-Severe Pain (-05/25) Polyethylene Glycol 3350 [Miralax] 17 gm PO DAILY #30 packet Docusate Sodium [Colace] 100 mg PO BID #60 cap Naproxen [Naprosyn] 250 - 500 mg PO TID PRN #30 tab PRN Reason: Mild-Mod Pain (-12/23) Primary Care Physician: Skyler Hatch DO [Primary Care Provider] - Please Follow Up With: Dona Santos MD - [phone] When: in 2 weeks, please call to make an appointment. 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 Avoid heavy lifting and nothing in vagina for 4-6 wk to allow healing. Medical Necessity - Tobacco Use Smoking Status: Current some day smoker Meaningful Use Info Meaningful Use Diagnoses (Choose all that apply): None applicable
--- NOTE | 2017-12-03 08:36 | DS.PCM_ITS ---
Discharge Date and Diagnosis Date of Admission: 12/01/17 - Chronic pelvic pain, Severe endometriosis, pelvic adhesive disease Date of Discharge: 12/03/17 - s/p supracervical abdominal hyst, LSO.lysis adhesions Hospital Course and Treatment Operations: hysterectomy - Supracervical abdominal hysterectomy, LSO. adhesiolysis. Summary of Care Provided: The patient is a 42 year old female with prior C/S and prior RSO. H/o severe endometriosis and pelvic adhesive disease 2/2 endometriosis. Chronic pelvic pain. Presents for hysterectomy and LSO. Elected [facility] and declined robotic hysterectomy. Admitted on 12/01/17 for surgery. Supracervical hysterectomy, LSO and adhesiolysis performed. Cervix left in place due to dense adhesions along the uterosacral ligaments and posterior pelvis. Postoperative course uneventful: CBC stable. Mild to mod HTN d/t to pain, fluid balance Discharged home on POD #2 to f/u in ofc in 2 wk as planned, prn sooner. Discharge Diet: No Restrictions Discharge Activity: May not drive while taking narcotic pain medications., May Shower, May Take a Tub Bath Return to work on:: 01/17/18 May resume sexual activity in: 4-6 weeks Call your doctor if you observe: Fever of 101 or Higher, Inability to have a bowel movement, Using more than one pad per hour, Calf discomfort, Uncontrolled pain Change Dressing in (Days):: 14 Remove Dressing in (days):: 14 Cleanse incision/area with: Soap & Water, Keep Dressing Clean & Dry Home Medications: Medications to take at Discharge Vitamin B Complex 1 each PO DAILY 06/28/15 Duloxetine Hcl [Cymbalta] 90 mg PO DAILY 11/26/17 Lorazepam [Ativan] 0.5 mg PO TID PRN PRN 11/26/17 Multivitamin [Multiple Vitamins] 1 each PO DAILY 11/26/17 Naproxen [Naprosyn] 500 mg PO BID PRN PRN 11/26/17 Docusate Sodium [Colace] 100 mg PO BID #60 cap 12/01/17 Oxycodone [Oxyir] 5 - 10 mg PO Q6H PRN PRN 7 Days #28 tablet 12/01/17 Polyethylene Glycol 3350 [Miralax] 17 gm PO DAILY #30 packet 12/01/17 Naproxen [Naprosyn] 250 - 500 mg PO TID PRN #30 tab 12/03/17 Following Prescrptions Were Given to Patient: Oxycodone [Oxyir] 5 - 10 mg PO Q6H PRN PRN 7 Days #28 tablet PRN Reason: Mod-Severe Pain (-05/25) Polyethylene Glycol 3350 [Miralax] 17 gm PO DAILY #30 packet Docusate Sodium [Colace] 100 mg PO BID #60 cap Naproxen [Naprosyn] 250 - 500 mg PO TID PRN #30 tab PRN Reason: Mild-Mod Pain (-12/23) Primary Care Physician: Skyler Hatch DO [Primary Care Provider] - Please Follow Up With: Dona Santos MD - [phone] When: in 2 weeks, please call to make an appointment. 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 Avoid heavy lifting and nothing in vagina for 4-6 wk to allow healing. Medical Necessity - Tobacco Use Smoking Status: Current some day smoker Meaningful Use Info Meaningful Use Diagnoses (Choose all that apply): None applicable
[2017-12-03] MEDS: Docusate Sodium 100 MG Capsule PO (09:52)
[2017-12-03] MEDS: Polyethylene Glycol 3350 17 GM PACKET PO (09:52)
[2017-12-03] MEDS: DULoxetine Hcl 30 MG Capsule 90 MG PO (09:52)
[2017-12-03 10:00] VITALS: BP 108/72; PULSE 72; RESP 16; TEMP 36.6; O2SAT 96
== END 2017-12-03 11:16 | disposition home or self-care (01) | DRG 743 ==
LOC: ACINP 10:36 → MS2 12:36
PROVIDERS: Admitting Provider Obstetrics & Gynecology; Family Provider Preventive Medicine Occupational Medicine; PCP Preventive Medicine Occupational Medicine; Visit Provider Obstetrics & Gynecology
PROC: 0UT94ZZ Resection of Uterus, Percutaneous Endoscopic Approach (ICD-10-PCS; principal; 2017-12-01 12:10)
DX: N80.9 Endometriosis, unspecified (principal); N73.6 Female pelvic peritoneal adhesions (postinfective); I10 Essential (primary) hypertension; F17.200 Nicotine dependence, unspecified, uncomplicated; M79.7 Fibromyalgia; M46.86 Other specified inflammatory spondylopathies, lumbar region; F41.9 Anxiety disorder, unspecified; F32.9 Major depressive disorder, single episode, unspecified; Z79.899 Other long term (current) drug therapy
CPT/HCPCS: 36415; 80048; 81025; 84703; 85027; 86850; 86900; 88307; 93005; J7120; A4216; J2405

== ENCOUNTER → 2017-12-15 11:06 | Outpatient (CLI) | payer OTHER, SELFPAY ==
[2017-12-15 12:45] LABS: Anion Gap 7 (5-15); BUN 13 mg/dL (7-18); BUN/Creat Ratio 18.1 RATIO (10-20); Calcium,Total 9.4 mg/dL (8.5-10.1); Chloride 106 mmol/L (98-107); Creatinine, Serum 0.72 mg/dL (0.55-1.02); EST Glomerular Filtration Rate 94 mL/min (>60); Est Glom Filt Rate - Afr Amer 114 mL/min (>60); Glucose 96 mg/dL (74-106); Potassium 4.3 mmol/L (3.5-5.1); Sodium Level 141 mmol/L (136-145)
[2017-12-15 12:48] LABS: Hematocrit 37.5 % (37-47); Hemoglobin 12.5 g/dl (12.0-15.0); Mean Corp Hgb Conc 33.3 g/gl (32-36); Mean Corpuscular Hgb 29.9 pg (27.0-32.0); Mean Corpuscular Volume 89.7 fL (81-99); Mean Platelet Vol. 9.2 fl (6.2-12.0); Platelet Count 461 K/mm3 (150-450); RBC Distribution Width SD 44.9 fl (35.1-43.9); Red Blood Count 4.18 M/mm3 (4.2-5.4); White Blood Count 10.4 K/mm3 (4.4-11.0)
[2017-12-15 12:56] LABS: Scan Indicated on CBC? Y/N NO
== END ==
PROVIDERS: Visit Provider Obstetrics & Gynecology
DX: I10 Essential (primary) hypertension (principal)
CPT/HCPCS: 36415; 80048; 85027

== ENCOUNTER → 2019-10-05 07:13 | Outpatient (CLI) | payer MEDICAID, SELFPAY ==
[2019-09-28 13:30] VITALS: BMI 31.8
--- NOTE | 2019-10-05 07:18 | BI_ITS ---
MAMMOGRAPHY - BILATERAL SCREENING REASON FOR EXAM: Female, 44 years old. Routine annual screening examination. PERTINENT HISTORY: Aunt with breast cancer. TECHNIQUE: Digital bilateral breast charlette (3D mammographic acquisition) in the CC and MLO projections. 2-D mediolateral oblique (MLO) and craniocaudad (CC) views of both breasts were obtained. CAD: Full Field Digital Mammography with Computer Added Detection was performed. COMPARISON: Comparison is made with prior examination dated June 04, 2016. FINDINGS: Breast Composition: The breasts are heterogeneously dense, which may obscure small masses. There are no dominant masses or suspicious calcifications. No other significant abnormalities are identified. There has been no significant change since the prior study. BI/SCREEN MAMM (CAD) W/CHARLETTE BILAT IMPRESSION: Stable bilateral screening mammogram. Yearly follow-up mammogram recommended. (A) ASSESSMENT CATEGORY: BIRADS Category 1: Negative. A letter regarding these results will be sent to the patient by the facility within 30 days. Approximately 10% of breast cancers are not detected by mammography. A normal mammogram should not delay biopsy of a clinically suspicious abnormality. [id number] Electronically Signed: Fredrick Duran, at 8:22 EST , Service support ,
== END ==
PROVIDERS: Referring Provider Obstetrics & Gynecology; Visit Provider Obstetrics & Gynecology
DX: Z12.31 Encounter for screening mammogram for malignant neoplasm of breast (principal)
CPT/HCPCS: 77063; 77067

== ENCOUNTER → 2019-10-11 | Outpatient (CLI) | payer MEDICAID, SELFPAY ==
[2019-09-28 13:30] VITALS: BMI 31.8
[2019-10-16 20:07] LABS: Age Gdln ACOG Testing 30-65 (.)
[2019-10-16 20:30] LABS: HPV APTIMA, High Risk Positive (Negative)
[2019-10-16 20:31] LABS: HPV Reflexed? YES, CHARGE PATIENT
== END | disposition home or self-care (01) ==
LOC: LABSPEC 14:17
PROVIDERS: Visit Provider Obstetrics & Gynecology
DX: Z12.4 Encounter for screening for malignant neoplasm of cervix (principal)
CPT/HCPCS: 87624; 88175; G0145

== ENCOUNTER → 2019-11-02 | Outpatient (CLI) | payer MEDICAID, SELFPAY ==
[2019-09-28 13:30] VITALS: BMI 31.8
--- NOTE | 2019-11-02 14:30 | CER_PTH ---
PATIENT: KATLIN GAYTAN [facility] U[id number] AGE/SX: 44/F ROOM: RE11/02/[address]: Dr. Valeriy Jamil MD : 1975 BED: DIS: 11/02/2019 SPEC #: [id number] RECD: 11/02/19 17:09 STATUS: ERICKA FARNAZ #: [id number] GUILLERMINA: 11/02/19 14:[address]: Valeriy Jamil DEPT: SURGICAL PATHOLOGY RECD BY: Gaurang Hendricks ENTERED: 11/03/19 07:30 SP TYPE: CERV OTHR DR: Dr. Tamra Schumacher, Tissues: A - Uterine cervix, NOS B - Uterine cervix, NOS Procedures: Surgery Specimen Level IV HEADER OPERATION: Colposcopy PRE-OP DIAGNOSIS: R87.610 R87.810 TISSUE SUBMITTED: A - Four quadrant cervical biopsy, B - ECC MICROSCOPIC DIAGNOSIS A. Cervix, four-quadrant biopsy: Fragments of squamous mucosa, negative for dysplasia. B. ECC: Fragments of benign ecto- and endocervical epithelium with chronic inflammation and negative for dysplasia. LEIGHTON:leisa 11/06/19 COMMENT Clinical correlation and appropriate follow up are necessary. MICROSCOPIC DESCRIPTION Slides are reviewed. GROSS DESCRIPTION A - Received in fixative is one container labeled with the patient's name and designated four-quadrant cervical biopsy. The specimen consists of multiple irregular fragments of light flores soft tissue that in aggregate measure 0.7 x 0.7 x 0.2 cm. The specimen is totally submitted in one cassette. B - Received in fixative is one container labeled with the patient's name and designated ECC. The specimen consists of multiple irregular fragments of flores mucoid tissue that in aggregate measure 1 x 1 x 0.1 cm. The specimen is totally submitted in one cassette. / LEIGHTON:leisa 11/03/19 TC:3 CPT: 18686 x2
== END | disposition home or self-care (01) ==
PROVIDERS: Referring Provider Obstetrics & Gynecology; Visit Provider Obstetrics & Gynecology
DX: R87.610 Atypical squamous cells of undetermined significance on cytologic smear of cervix (ASC-US) (principal); R87.810 Cervical high risk human papillomavirus (HPV) DNA test positive
CPT/HCPCS: 88305

== ENCOUNTER → 2020-12-16 16:17 | Outpatient (CLI) | payer OTHER, MEDICAID, SELFPAY ==
[2019-09-28 13:30] VITALS: BMI 31.8
[2020-12-20 20:19] LABS: HPV APTIMA, High Risk Negative (Negative); HPV Reflexed? YES, CHARGE PATIENT
== END ==
PROVIDERS: Visit Provider Obstetrics & Gynecology
DX: Z12.4 Encounter for screening for malignant neoplasm of cervix (principal)
CPT/HCPCS: 87624; 88175; G0145

== ENCOUNTER → 2020-12-26 07:59 | Outpatient (CLI) | payer OTHER, MEDICAID, SELFPAY ==
[2019-09-28 13:30] VITALS: BMI 31.8
--- NOTE | 2020-12-26 08:03 | BI_ITS ---
MAMMOGRAPHY - BILATERAL SCREENING REASON FOR EXAM: Female, 45 years old. Routine annual screening examination. PERTINENT HISTORY: Aunt with breast cancer. TECHNIQUE: Digital bilateral breast charlette (3D mammographic acquisition) in the CC and MLO projections. 2-D mediolateral oblique (MLO) and craniocaudad (CC) views of both breasts were obtained. CAD: Full Field Digital Mammography with Computer Added Detection was performed. COMPARISON: Comparison is made with prior study dated 10/05/2019 and 06/04/2016. FINDINGS: Breast Composition: The breasts are heterogeneously dense, which may obscure small masses. There are no dominant masses or suspicious calcifications. Stable benign appearing bilateral axillary lymph nodes. No other significant abnormalities are identified. There has been no significant change since the prior study. BI/SCRN MAMM (CAD)W/CHARLETTE BILAT IMPRESSION: Stable bilateral screening mammogram. Yearly follow-up mammogram recommended. (A) ASSESSMENT CATEGORY: BIRADS Category 2: Benign. A letter regarding these results will be sent to the patient by the facility within 30 days. Approximately 10% of breast cancers are not detected by mammography. A normal mammogram should not delay biopsy of a clinically suspicious abnormality. [id number] Electronically Signed: Fredrick Duran MD at 8:59 EDT , Service support ,
== END ==
PROVIDERS: Referring Provider Obstetrics & Gynecology; Visit Provider Obstetrics & Gynecology
DX: Z12.31 Encounter for screening mammogram for malignant neoplasm of breast (principal)
CPT/HCPCS: 77063; 77067

== ENCOUNTER → 2022-09-18 | Outpatient (CLI) | payer MEDICAID, SELFPAY ==
[2022-09-24 17:47] LABS: HPV APTIMA, High Risk Negative (Negative)
== END | disposition home or self-care (01) ==
LOC: LABSPEC 10:42
PROVIDERS: Visit Provider Student in an Organized Health Care Education/Training Program
DX: Z12.4 Encounter for screening for malignant neoplasm of cervix (principal)
CPT/HCPCS: 87624; 88175; G0145

== ENCOUNTER → 2022-10-01 | Outpatient (CLI) | payer MEDICARE, MEDICAID, SELFPAY ==
--- NOTE | 2022-10-01 09:45 | BI_ITS ---
MAMMOGRAPHY - BILATERAL SCREENING REASON FOR EXAM: Female, 47 years old. Routine annual screening examination. PERTINENT HISTORY: Aunt with breast cancer. TECHNIQUE: Digital bilateral breast charlette (3D mammographic acquisition) in the CC and MLO projections. 2-D mediolateral oblique (MLO) and craniocaudad (CC) views of both breasts were obtained. CAD: Full Field Digital Mammography with Computer Added Detection was performed. COMPARISON: Comparison is made with prior study of 12/26/2020 and 10/05/2019. FINDINGS: Breast Composition: There are scattered areas of fibroglandular density. There are no dominant masses or suspicious calcifications. Stable small benign-appearing bilateral axillary lymph nodes. No other significant abnormalities are identified. There has been no significant change since the prior study. BI/SCRN MAMM (CAD)W/CHARLETTE BILAT IMPRESSION: Stable bilateral screening mammogram. Yearly follow-up mammogram recommended. (A) ASSESSMENT CATEGORY: BIRADS Category 2: Benign. A letter regarding these results will be sent to the patient by the facility within 30 days. Approximately 10% of breast cancers are not detected by mammography. A normal mammogram should not delay biopsy of a clinically suspicious abnormality. [id number] Electronically Signed: Fredrick Duran MD at 11:54 EST ,
== END | disposition home or self-care (01) ==
LOC: OPBI 09:43
PROVIDERS: Visit Provider Student in an Organized Health Care Education/Training Program
DX: Z12.31 Encounter for screening mammogram for malignant neoplasm of breast (principal)
CPT/HCPCS: 77063; 77067

== ENCOUNTER → 2023-04-29 | Outpatient (CLI) | payer MEDICARE, SELFPAY ==
[2023-04-29 09:10] LABS: ALB/GLOB Ratio 1.1 RATIO (0.9-2.4); AST(SGOT) 15 U/L (15-37); Alanine Aminotransfer ALT/SGPT 19 U/L (13-56); Albumin, Serum 3.6 g/dL (3.2-5.0); Alkaline Phosphatase 69 U/L (45-117); Anion Gap 5 (5-15); BUN 11 mg/dL (7-18); BUN/Creat Ratio 14.8 RATIO (10-20); Calcium,Total 9.1 mg/dL (8.5-10.1); Chloride 110 mmol/L (98-107); Creatinine, Serum 0.74 mg/dL (0.55-1.02); EST Glomerular Filtration Rate 89 mL/min (>60); Est Glom Filt Rate - Afr Amer 107 mL/min (>60); Globulin 3.4 g/dL (2.2-4.2); Glucose 86 mg/dL (74-106); Lipase 39 U/L (13-75); Potassium 3.7 mmol/L (3.5-5.1); Sodium Level 142 mmol/L (136-145); T4 Total, Thyroxin 9.1 ug/dL (4.8-13.9)
[2023-04-29 19:50] LABS: Amylase 44 U/L (25-115); Thyroid Stim Hormone (TSH) 1.39 uIU/mL (0.358-3.74)
[2023-04-30 15:08] LABS: Deamidated Gliadin IgA 6 units (0-19); Deamidated Gliadin IgG 5 units (0-19); Immunoglobulin A 315 mg/dL (87-352)
== END | disposition home or self-care (01) ==
DX: K58.2 Mixed irritable bowel syndrome (principal); R10.9 Unspecified abdominal pain
CPT/HCPCS: 80053; 82150; 82784; 83516; 83690; 84436; 84443

== ENCOUNTER → 2023-05-20 | Outpatient (CLI) | payer MEDICARE, SELFPAY ==
--- NOTE | 2023-05-20 07:41 | US_ITS ---
STUDY: ABDOMINAL ULTRASOUND REASON FOR EXAM: Female, 48 years old. IBS WITH WEIGHT LOSS -- K58.2,R63.4 TECHNIQUE: Transabdominal ultrasound was performed with real-time and static mayorga scale imaging. TECHNICAL QUALITY: Adequate. COMPARISON: None. FINDINGS: Liver: The liver measures 14.3 cm. There is increased echogenicity consistent with fatty infiltration. The bile ducts are within normal limits. There is hepatic color flow. The direction of portal flow is hepatopetal. There is no demonstrated mass lesion. Gallbladder: The patient is status post cholecystectomy. Common Bile Duct (C.B.D.): The common bile duct measures 4.2 mm. Pancreas: Normal size of the head, body and tail of the pancreas. There is no demonstrated pancreatic mass or cyst. Spleen: Normal size of the spleen. The spleen measures 8.2 cm x 3.3 cm x 3.6 cm. Right Kidney: Normal size of the right kidney. The right kidney measures 10.3 cm x 4.8 cm x 4.6 cm. Normal renal cortex. The right cortex measures 1.3 cm. There is no demonstrated renal mass or cyst. There is no right hydronephrosis. Left Kidney: Normal size of the left kidney. The left kidney measures 9.7 cm x 4.4 cm x 4.4 cm. Normal renal cortex. The left cortex measures 1.2 cm. There is no demonstrated renal mass or cyst. There is no left hydronephrosis. Aorta: Unremarkable I.V.C.: The IVC is patent. There is no ascites. US/Abdomen Complete IMPRESSION: Fatty infiltration of the liver. Status post cholecystectomy. Electronically Signed: Fredrick Duran MD at 14:59 EDT ,
== END | disposition home or self-care (01) ==
DX: K58.2 Mixed irritable bowel syndrome (principal); R63.4 Abnormal weight loss
CPT/HCPCS: 76700